=== PATIENT | female | born 1950 | race Caucasian/White ===

== ENCOUNTER → 2019-12-01 | Outpatient (CLI) | payer MEDICARE, OTHER | END | disposition home or self-care (01) | LOC: LAB SHORT 09:00 → LAB EV 09:00 | DX: R23.8 Other skin changes (principal) | CPT/HCPCS: 87529 ==

== ENCOUNTER → 2022-06-03 | Outpatient (CLI) | payer MEDICARE, OTHER | LOC: LAB SHORT 08:15 → PLD 08:15 → LAB 08:15 | DX: L60.2 Onychogryphosis (principal); B35.1 Tinea unguium | CPT/HCPCS: 88304; 88312 ==

== ENCOUNTER 2022-09-02 08:56 | Day surgery (SDC) | payer MEDICARE, OTHER ==
[~2022-09-02] VITALS: Ht 160 cm; Wt 55.8 kg
[~2022-09-02 08:56] MED LIST: ACYC200 PO; ALEN70 PO; CELE200 PO; CLIMARA1 EACH TOP; Cymbalta20 MG PO; MEDR2.5 PO; OMEP20ER PO; ROPI1 PO; TRAM50 PO
[2022-09-02 10:00] VITALS: BP 139/80
--- NOTE | 2022-09-02 10:12 | NUR ---
Ambulatory in Day Surgery History, Chart, Medications and Allergies reviewed before start of procedure. Pre-Op teaching done. Pt verbalizes understanding. Patient States Post-Procedure ride home has been arranged.
--- NOTE | 2022-09-02 10:20 | NUR ---
09/02/22 Shayla Gore HISTORY, CHART, MEDICATIONS AND ALLERGIES REVIEWED BEFORE START OF PROCEDURE. PATIENT CONFIRMS NPO STATUS AND AGREES WITH SCHEDULED PROCEDURE. 3-LEAD EKG REVIEWED WITH PHYSICIAN PRIOR TO START OF PROCEDURE. MONITOR INTACT WITH CONTINUOUS PULSE OXIMETRY,CAPNOGRAPHY, 3-LEAD EKG, INTERMITTENT BP. SUPPLEMENTAL O2 TO BE TITRATED THROUGHOUT PROCEDURE TO MAINTAIN O2 SATURATION ABOVE 90%. PATIENT DETERMINED TO BE ASA APPROPRIATE FOR PROPOFOL SEDATION PRIOR TO START OF PROCEDURE BY
[2022-09-02 10:52] VITALS: BP 132/82
--- NOTE | 2022-09-02 10:57 | NUR ---
REPORT RECIEVED. PT UP IN BED TOLERING PO FLUIDS. DR DIANA AND AT BEDSIDE. ON ROOM AIR. VSS
[2022-09-02 11:03] VITALS: BP 124/88
--- NOTE | 2022-09-02 11:17 | NUR ---
Patient up to Ambulate independently. Gait steady. Discharge instructions reviewed with patient AND FRIEND . Patient verbalizes understanding. Copy given to patient to take home. Discharged via wheelchair to private car for ride home. PT UP TO RESTROOM
== END 2022-09-02 11:20 | disposition home or self-care (01) ==
LOC: ORSCMMR 08:56 → ORD 10:00 → ORSCMMR 11:20
PROVIDERS: Internal Medicine Gastroenterology
PROC: 0DB48ZX Excision of Esophagogastric Junction, Via Natural or Artificial Opening Endoscopic, Diagnostic (ICD-10-PCS; principal; 2022-09-02 10:00)
PROC: 0DB68ZX Excision of Stomach, Via Natural or Artificial Opening Endoscopic, Diagnostic (ICD-10-PCS; principal; 2022-09-02 10:00)
PROC: 0DB58ZX Excision of Esophagus, Via Natural or Artificial Opening Endoscopic, Diagnostic (ICD-10-PCS; principal; 2022-09-02 10:00)
PROC: 0DB98ZX Excision of Duodenum, Via Natural or Artificial Opening Endoscopic, Diagnostic (ICD-10-PCS; principal; 2022-09-02 10:00)
DX: R10.13 Epigastric pain (principal); F32.A Depression, unspecified; Z80.0 Family history of malignant neoplasm of digestive organs; R04.2 Hemoptysis; K21.9 Gastro-esophageal reflux disease without esophagitis; Z79.899 Other long term (current) drug therapy
CPT/HCPCS: 88305; 88342; A9270; J2704; J7120

== ENCOUNTER → 2022-12-04 | Outpatient (CLI) | payer MEDICARE, OTHER ==
[2022-12-09 06:10] LABS: TRAMADOL >2128 (.)
== END | disposition home or self-care (01) ==
LOC: LAB SHORT 11:29 → LAB 11:29
PROVIDERS: Physician Assistant
DX: Z51.81 Encounter for therapeutic drug level monitoring (principal); Z79.899 Other long term (current) drug therapy
CPT/HCPCS: G0480

== ENCOUNTER → 2023-10-21 | Outpatient (CLI) | payer MEDICARE, OTHER ==
[2023-10-25 09:46] LABS: 6-ACETYLMORPHINE, URN, QUANT <10 ng/mL; CODEINE, URN, QUANT <20 ng/mL; HYDROCODONE, URN, QUANT <20 ng/mL; HYDROMORPHONE, URN, QUANT <20 ng/mL; MORPHINE, URN, QUANT <20 ng/mL; NORHYDROCODONE, URN, QUANT 69 ng/mL; NOROXYCODONE, URN, QUANT <20 ng/mL; NOROXYMORPHONE, URN, QUANT <20 ng/mL; OXYCODONE, URN, QUANT <20 ng/mL; OXYMORPHONE, URN, QUANT <20 ng/mL
== END ==
LOC: LAB 15:35 → LAB SHORT 15:35
PROVIDERS: Physician Assistant
DX: Z79.891 Long term (current) use of opiate analgesic (principal); Z79.899 Other long term (current) drug therapy
CPT/HCPCS: G0480

== ENCOUNTER 2024-05-19 11:39 | Inpatient (IN) | payer MEDICARE, OTHER ==
[~2024-05-19] VITALS: Ht 160 cm; Wt 58.6 kg
[2024-05-19] MEDS ORDERED: Morphine Sulfate 4 MG/1 ML Injection IV ONE ×2 (12:20→13:00)
[2024-05-19 12:25] LABS: BASOPHILS ABSOLUTE AUTO 0.04 K/mm3 (0.00-0.23); BASOPHILS PERCENT AUTO 0 % (0-2); EOSINOPHILS ABSOLUTE AUTO 0.01 K/mm3 (0.00-0.68); EOSINOPHILS PERCENT AUTO 0 % (0-6); Hematocrit 33.4 % (33.0-51.0); Hemoglobin 11.2 g/dL (11.5-16.0); IMMATURE GRAN ABSOLUTE AUTO 0.03 K/mm3 (0.00-0.10); IMMATURE GRAN PERCENT AUTO 0 % (0-1); LYMPHOCYTES ABSOLUTE AUTO 0.95 K/mm3 (0.84-5.20); LYMPHOCYTES PERCENT AUTO 9 % (21-46); MONOCYTES ABSOLUTE AUTO 1.06 K/mm3 (0.16-1.47); MONOCYTES PERCENT AUTO 10 % (4-13); Mean Corpuscular HGB 29.1 pg (26.0-34.0); Mean Corpuscular HGB Conc 33.5 g/dL (31.5-36.5); Mean Corpuscular Volume 87 fL (80-100); Mean Platelet Volume 10.3 fL (9.1-12.4); NEUTROPHILS ABSOLUTE AUTO 8.39 K/mm3 (1.96-9.15); NEUTROPHILS PERCENT AUTO 80 % (41-73); Platelet Count 198 K/mm3 (150-400); RDW Coefficient Variation 13.8 % (11.7-14.2); RDW Standard Deviation 43.7 fL (35.1-46.3); Red Blood Cell Count 3.85 M/mm3 (3.80-5.20); White Blood Cell Count 10.48 K/mm3 (4.00-11.30)
[2024-05-19 12:51] LABS: Free Thyroxine 1.54 ng/dL (0.70-1.60)
[2024-05-19 12:54] LABS: Albumin, Blood 3.6 g/dL (3.4-5.0); Bilirubin, Total 1.1 mg/dL (0.1-1.0); Bun/Creatinine Ratio 33.6 (12.0-20.0); Calcium, Blood 8.8 mg/dL (8.5-10.1); Creatinine, Blood 0.92 mg/dL (0.40-1.00); Globulin, Blood 3.7 g/dL (2.2-4.0); Potassium, Blood 3.7 mmol/L (3.5-5.5); Thyroid Stimulating Hormone 0.594 uIU/mL (0.360-4.800); Total Protein, Blood 7.3 g/dL (6.4-8.2)
[2024-05-19 14:51] LABS: Source, Urine Straight Cath
[2024-05-19 14:54] LABS: Bilirubin, Urine Neg (Neg); Blood, Urine 1+ (Neg); Color, Urine Yellow (P-Yellow); Glucose Qualitative, Urine Neg (Neg); Ketones, Urine 4+ (Neg); Leukocyte Esterase, Urine 1+ (Neg); Nitrite, Urine Neg (Neg); Protein, Urine 2+ (Neg); Specific Gravity, Urine 1.025 (1.003-1.022); Urobilinogen, Urine NORM (Normal)
[2024-05-19] MEDS ORDERED: NS 1,000 ML IV SCH ×2 (15:00→18:45)
[2024-05-19 15:06] LABS: Appearance, Urine Hazy (Clear)
[2024-05-19 15:08] LABS: Red Blood Cells, Urine 0-2 /hpf (0-2); Squamous Epithelial Cells Rare /hpf (Few)
[2024-05-19 15:09] LABS: Bacteria Mod /hpf; Mucus Light (0-Heavy)
[2024-05-19] MEDS ORDERED: HYDROmorphone HCl/Pf 1MG SYR IV ONE (15:25)
[2024-05-19] MEDS ORDERED: FLU VACC TS2024-25(6MOS UP)/PF 45 MCG/0.5 ML SYRINGE IM ONE (18:20)
[2024-05-19] MEDS ORDERED: Ondansetron 4 MG TAB PO PRN (18:20)
[2024-05-19] MEDS ORDERED: CefTRIAXone Sodium 1,000 MG in NS 100 ML IV SCH (19:00)
[2024-05-19] MEDS ORDERED: VENL75ER PO (19:55)
[2024-05-19] MEDS ORDERED: TRAZ50 PO (20:00)
[2024-05-19] MEDS ORDERED: FURO20 PO (20:01)
[2024-05-19] MEDS ORDERED: OMEP20ER PO (20:01)
[2024-05-19] MEDS ORDERED: PROP80ER PO (20:02)
--- NOTE | 2024-05-19 20:02 | NUR ---
TOOK REPORT FROM QI WARREN.
[2024-05-19] MEDS ORDERED: PREG200 PO (20:04)
[2024-05-19] MEDS ORDERED: NIFE60ER PO (20:06)
[2024-05-19 20:30] VITALS: BP 120/67
[2024-05-19] MEDS ORDERED: Morphine Sulfate 4 MG/1 ML Injection IV PRN (21:15)
--- NOTE | 2024-05-20 00:04 | NUR ---
PT FAILED BEDSIDE SWALLOW EVALUATION. HOSPITALIST NOTIFIED AND PT MADE NPO. 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 HOSPITALIST NOTIFIED AND ORDERS GIVEN TO PASS ALONG TO DAY TO [facility] FOR POSSIBLE HEAD MRI AND ST EVALUATION.
[2024-05-20] MEDS ORDERED: FentaNYL Citrate 50 MCG/ML 2 ML Injection IV PRN (00:25)
[2024-05-20] MEDS ORDERED: DiphenhydrAMINE HCl 50 MG/ML 1ML Vial IV ONE ×2 (04:15→22:55)
--- NOTE | 2024-05-20 04:23 | NUR ---
PT HAD C/O OF ITCHING AND ORDER FOR IV BENADRYL 25 MG X 1 GIVEN.
--- NOTE | 2024-05-20 05:19 | NUR ---
SHIFT SUMMARY NOC PT A/O X 3-4. HAS NEW BUE CONTRACTURES THAT HAVE IMPROVED WITH BETTER RANGE OF MOTION SINCE ADMIT TO FLOOR, WELL L EYE DROOP HAS RESOLVED AND BOTH ARE EQUAL. PT FAILED BEDSIDE SWALLOW EVALUATION AND IS NPO PENDING ST EVAL. 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 PAIN BEING MANAGED PER EMAR. PT GIVEN ONE DOSE BENADRYL FOR ITCHING. NS INFUSING @ 100 ML/HR. PUREWICK IN PLACE FOR INCONTINENCE AND IMMOBILITY. DURING ASSESSMENT PT DOES NOT REMEMBER FALLING DOWN AT HOME. PT SISTER IN ROOM STAYING WITH PT. PT SON LISETTE IN [place] IS POA AND SENDING ADVANCE DIRECTIVE/POA DOCUMENTS TO CARE MANAGEMENT. PT HAD SMALL HARD BM ON BEDPAN. PT CURRENTLY RESTING WITH BED IN LOWEST POSITION, AND CALL LIGHT WITHIN REACH.
[2024-05-20 06:00] VITALS: BP 134/69
[2024-05-20 07:43] VITALS: BP 144/76
[2024-05-20 08:19] LABS: BASOPHILS ABSOLUTE AUTO 0.04 K/mm3 (0.00-0.23); BASOPHILS PERCENT AUTO 1 % (0-2); EOSINOPHILS ABSOLUTE AUTO 0.05 K/mm3 (0.00-0.68); EOSINOPHILS PERCENT AUTO 1 % (0-6); Hematocrit 30.3 % (33.0-51.0); Hemoglobin 10.1 g/dL (11.5-16.0); IMMATURE GRAN ABSOLUTE AUTO 0.02 K/mm3 (0.00-0.10); IMMATURE GRAN PERCENT AUTO 0 % (0-1); LYMPHOCYTES ABSOLUTE AUTO 1.26 K/mm3 (0.84-5.20); LYMPHOCYTES PERCENT AUTO 16 % (21-46); MONOCYTES ABSOLUTE AUTO 0.95 K/mm3 (0.16-1.47); MONOCYTES PERCENT AUTO 12 % (4-13); Mean Corpuscular HGB Conc 33.3 g/dL (31.5-36.5); Mean Corpuscular Volume 87 fL (80-100); Mean Platelet Volume 10.1 fL (9.1-12.4); NEUTROPHILS ABSOLUTE AUTO 5.74 K/mm3 (1.96-9.15); NEUTROPHILS PERCENT AUTO 71 % (41-73); Platelet Count 173 K/mm3 (150-400); RDW Coefficient Variation 14.4 % (11.7-14.2); RDW Standard Deviation 45.9 fL (35.1-46.3); Red Blood Cell Count 3.48 M/mm3 (3.80-5.20); White Blood Cell Count 8.06 K/mm3 (4.00-11.30)
[2024-05-20 08:39] LABS: Albumin, Blood 3.3 g/dL (3.4-5.0); Albumin/Globulin Ratio 1.1 (0.8-1.8); Bilirubin, Total 0.8 mg/dL (0.1-1.0); Bun/Creatinine Ratio 23.1 (12.0-20.0); Calcium, Blood 7.9 mg/dL (8.5-10.1); Creatinine, Blood 0.65 mg/dL (0.40-1.00); Globulin, Blood 3.1 g/dL (2.2-4.0); Potassium, Blood 3.3 mmol/L (3.5-5.5); Total Protein, Blood 6.4 g/dL (6.4-8.2)
[2024-05-20] MEDS ORDERED: Enoxaparin 40 MG/0.4 ML SYR SC SCH (09:00)
[2024-05-20] MEDS ORDERED: Potassium Chl 20MEQ/Water100ML 100 ML IV SCH (10:20)
[2024-05-20 15:50] VITALS: BP 152/87
--- NOTE | 2024-05-20 17:07 | NUR ---
SHIFT SUMMARY PT AOX3/4, COOPERATIVE, ABLE TO MAKE NEEDS KNOWN. PT CURRENLTY NPO DUE TO ASPIRATION RISK. MRI SCREENING FORM COMPLETE, FAXED TO IMAGING, IMAGING WILL PERFORM FURTHER 05/21/24. PT IS BEDREST, PUREWICK ACTIVE AND PATENT. MANY COMPLAINTS OF PAIN, MEDICATING PER EMAR. USING SPONGES TO MOISTEN MUCOUS MEMBRANES OF MOUTH. BED IN LOWEST POSITION, CALL LIGHT WITHIN REACH.
[2024-05-20 19:30] VITALS: BP 138/70
[2024-05-20 22:45] VITALS: BP 148/83
[2024-05-20] MEDS ORDERED: Famotidine 10 MG/ML 2ML Vial IV ONE (22:55)
[2024-05-20] MEDS ORDERED: MethylPREDNISolone Sod Succ 125 MG Vial IV ONE (22:55)
[2024-05-20] MEDS ORDERED: DiphenhydrAMINE HCl 50 MG/ML 1ML Vial ONE (22:55)
[2024-05-20] MEDS ORDERED: MethylPREDNISolone Sod Succ 125 MG Vial ONE (22:55)
[2024-05-20] MEDS ORDERED: D5W-1/2NS 1,000 ML IV SCH (23:20)
--- NOTE | 2024-05-21 00:14 | NUR ---
PT NOTED INCREASED BREATH SOUNDS FROM DOORWAY. WHEN ASSESSED SIGNIFICANT TONGUE SWELLING NOTED BY RT AND RN. SPO2 >92% ON RA, BUT BREATHING NOTED TO BE LABORED. BP STABLE, BUT PT TACHYCARDIC AND TACHYPNEIC. ASSOCIATE PROJECT MANAGER NOTIFIED THAT BOX TOE STITCHER PROBABLY NEEDED AND TO TAKE SECOND LOOK AT PT. BOX TOE STITCHER CALLED @ 0090. BOX TOE STITCHER AND HOSPTIALISTS ASSESSED PT AND TOLD PT HAS BEEN NPO AND HAS ONLY RECEIVED IV MORPHIN, FENTANYL AND 2 DOSES IV ABX ROCEPHIN SINCE COMING TO FLOOR YESTERDAY. PT GIVEN IV BENADRYL 50 MG, IV SOLU MED 60 MG, IV PEPCID 20 MG, WELL NASAL TRUMPET PLACEMENT BY RT. TONGUE SWELLING DECREASED AFTER RX GIVEN. ADDITIONAL ORDERS FOR IV BENADRYL Q8 X 2 DOSES, IV PEPCID 20 MG BID X 4 DOSES, AND IV SOLU MED 60 MG Q8 X 3 DOSES, BUT ONLY I MORE DOSE IF PT CONDITION IMPROVES. PT HAS BEEN NPO SINCE ADMIT YESTERDAY AND BLOOD SUGAR SPOT CHECKED AND FOUND TO BE TREDING DOWN FROM 84 IN AM TO 75, Q6H CHECKS ORDERED WELL D5 1/2 NS @ 75 X 1L.
[2024-05-21] MEDS ORDERED: DiphenhydrAMINE HCl 50 MG/ML 1ML Vial IV ONE (01:55)
[2024-05-21] MEDS ORDERED: DiphenhydrAMINE HCl 50 MG/ML 1ML Vial IV PRN (02:45)
[2024-05-21] MEDS ORDERED: HYDROmorphone HCl/Pf 1MG SYR IV ONE (04:55)
[2024-05-21 05:00] VITALS: BP 137/72
--- NOTE | 2024-05-21 05:37 | NUR ---
SHIFT SUMMARY NOC PT A/O X 4. PLEASANT AND COOPERATIVE WITH CARE. DURING ROUNDING PT BREATH SOUNDS COULD BE HEARD LOUD AND LABORED FROM DOORWAY. PT ASSESSED BY RN AND RT AND FOUND TO HAVE SIGNIFICANT SWELLING IN TONGUE AND FACE, BUT AIRWAY PATENT WITH SPO2 >92% ON RA, VSS AND HR ELEVATED AND PT TACHYPNEIC. CHARGE NURSE NOTIFIED AND SEAPORT PLANNING MANAGER INTIATED. PT GIVEN IV BENADRYL, PEPCID, AND SOLU MED. ADDITINAL DOSES OF EACH ORDERED SCHEDULED. IV ABX ROCEPHIN SUSPECTED PROBABLE CAUSE OF ANAPHYLAXIS AND DISCONTINUED. 28 CHADIAN NASAL TRUMPET PLACED BY RT TO KEEP AIRWAY PATENT DUE TO TONGUE SWELLING. PT SPO2 REMAINED >94%. PT ALSO HAS BEEN NPO SINCE ADMIT TO FLOOR AND SPOT CHECK OF BLOOD GLUCOSE 75, HOSPITALIST NOTIFIED AFTER SEAPORT PLANNING MANAGER CONCLUDED AND PT ON Q6H CBG CHECKS AND NS CHANGED TO D5 1/2 NS @ 75 ML/HR X 1L TO KEEP BLOOD GLUCOSE WNL UNTIL PT CAN BE SEEN BY ST FOR SWALLOW EVAL. PT HAS MORE ROM AND STRENGTH IN BUE, BUT BLE REMAIN VERY WEAK AND CONTRACTED TOGETHER. PT HAS MRI SCHEDULED FOR TODAY TO DETERMINE PLAN GOING FORWARD. PT HAS PUREWICK IN PLACE DUE TO WEAKNESS AND IMMOBILITY/PAIN. PT CURRENTLY RESTING WITH BED IN LOWEST POSITION, AND CALL LIGHT WITHIN REACH.
--- NOTE | 2024-05-21 05:43 | NUR ---
PT HAVING PAIN 9 ON FLACC SCALE. PT HAD ANAPHYLACTIC REACTION TO UNKNOWN SOURCE EARLIER IN SHIFT. PT HAD BEEN RECEIVING IV MORPHINE, FENTANYL FOR PAIN, AND IV ROCEPHIN WHICH WAS DC. HOSPITALIST NOTIFIED OF RN CONCERN ABOUT NOT KNOWING FOR SURE WHAT SOURCE OF REACTION WAS FROM. ONE TIME DOSE IV DILAUDID 0.5 MG WITH NO REACTION.
[2024-05-21] MEDS ORDERED: DiphenhydrAMINE HCl 50 MG/ML 1ML Vial IV SCH (07:00)
[2024-05-21] MEDS ORDERED: MethylPREDNISolone Sod Succ 125 MG Vial IV SCH (07:00)
--- NOTE | 2024-05-21 07:26 | NUR ---
BEFORE SHIFT CHANGE HOSPITALIST CAME TO CHECK ON PT, AND TOLD AND ASSESSED THAT PT TONGUE SWELLING HAS RESOLVED. HOSPITALIST STILL WANTS NPO STATUS BUT ALLOWING ICE CHIPS. PT ABLE CHEW AND SWALLOW ICE CHIPS W/O ISSUE.
[2024-05-21 07:41] VITALS: BP 134/81
[2024-05-21] MEDS ORDERED: Famotidine 10 MG/ML 2ML Vial IV SCH (09:00)
[2024-05-21 11:48] LABS: BASOPHILS ABSOLUTE AUTO 0.01 K/mm3 (0.00-0.23); BASOPHILS PERCENT AUTO 0 % (0-2); EOSINOPHILS PERCENT AUTO 0 % (0-6); Hematocrit 34.5 % (33.0-51.0); Hemoglobin 11.4 g/dL (11.5-16.0); IMMATURE GRAN ABSOLUTE AUTO 0.04 K/mm3 (0.00-0.10); IMMATURE GRAN PERCENT AUTO 0 % (0-1); LYMPHOCYTES ABSOLUTE AUTO 0.47 K/mm3 (0.84-5.20); LYMPHOCYTES PERCENT AUTO 5 % (21-46); MONOCYTES ABSOLUTE AUTO 0.08 K/mm3 (0.16-1.47); MONOCYTES PERCENT AUTO 1 % (4-13); Mean Corpuscular HGB 29.1 pg (26.0-34.0); Mean Corpuscular Volume 88 fL (80-100); NEUTROPHILS ABSOLUTE AUTO 8.76 K/mm3 (1.96-9.15); NEUTROPHILS PERCENT AUTO 94 % (41-73); Platelet Count 203 K/mm3 (150-400); RDW Coefficient Variation 14.2 % (11.7-14.2); RDW Standard Deviation 45.1 fL (35.1-46.3); Red Blood Cell Count 3.92 M/mm3 (3.80-5.20); White Blood Cell Count 9.36 K/mm3 (4.00-11.30)
[2024-05-21] MEDS ORDERED: Scopolamine Hydrobromide Patch TOP PRN (12:00)
[2024-05-21] MEDS ORDERED: LORazepam 1 MG Tab PO PRN (12:00)
[2024-05-21] MEDS ORDERED: Morphine Sulfate 20 MG/1ML 1 ML Oral Syringe SL PRN (12:00)
[2024-05-21] MEDS ORDERED: Atropine Sulfate 1% Opth Soln 2ML BTL SL PRN (12:00)
[2024-05-21 12:06] LABS: Albumin, Blood 3.2 g/dL (3.4-5.0); Albumin/Globulin Ratio 0.8 (0.8-1.8); Bilirubin, Total 0.7 mg/dL (0.1-1.0); Bun/Creatinine Ratio 11.5 (12.0-20.0); Calcium, Blood 7.8 mg/dL (8.5-10.1); Creatinine, Blood 0.52 mg/dL (0.40-1.00); Globulin, Blood 3.9 g/dL (2.2-4.0); Total Protein, Blood 7.1 g/dL (6.4-8.2)
[2024-05-21] MEDS ORDERED: Cyclobenzaprine HCl 10 MG Tab PO SCH (14:00)
[2024-05-21] MEDS ORDERED: TraZODone HCl 50 MG Tab PO PRN (14:35)
--- NOTE | 2024-05-21 15:33 | NUR ---
MET WITH PATIENT AND FAMILY. HER SISTER KANDACE, HER MOTHER VALENTIN AND HER FRIEND TINO WERE PRESENT. THEY REPORTED THAT SHE WAS FEELING AGITATED WITH THE FENTANYL. THEY ASKED ABOUT HOSPICE AND WHAT THOSE SERVICES WOULD PROVIDE. I CLARIFIED IF THEY HAD DECIDED ON HOSPICE. THEY SAID THAT IS THE DIRECTION THEY HAVE DECIDED TO GO. I DISCUSSED THIS WITH DR. DOTSON AND PLACED ORDERS FOR COMFORT CARE.
--- NOTE | 2024-05-21 18:27 | NUR ---
SHIFT SUMMARY PT TRANSITIONED TO COMFORT CARE THIS SHIFT. PT DROWSY THIS AM, BUT BECAME MORE ALERT AND WAS ORIENTED X2 W/ CONFUSION AT TIMES. PAIN MEDICATED PER EMAR AND WAS REPOSITIONED Q2H. FAMILY AT BESIDE T/O SHIFT. CALL LIGHT WITHIN REACH. PLAN FOR D/C ON HOSPICE PENDING CARE COORDINATION.
[2024-05-21] MEDS ORDERED: rOPINIRole HCl 1 MG Tab PO SCH (21:00)
[2024-05-21] MEDS ORDERED: Pregabalin 50 MG Capsule PO SCH (21:00)
--- NOTE | 2024-05-22 05:19 | NUR ---
SHIFT SUMMARY NOC PT A/O TO SELF, FAMILY, PLACE. ON COMFORT CARE MEASURES. PT HOME MEDS NOT GIVEN DUE TO PT NOT BEING ALERT ENOUGH TO TAKE THEM. PT RECEIVED ROXANOL/ATIVAN FOR PAIN/AGITATION. DOSE OF BENADRYL GIVEN FOR C/O OF ITCHING AND SWELLING PER PT, BUT NO SWELLING NOTED UPON ASSESSMENT. PUREWICK IN PLACE FOR COMFORT. ORAL CARE PROVIDED PER ORDERS/PRN. PT CURRENTLY RESTING WITH BED IN LOWEST POSITION, AND CALL LIGHT WITHIN REACH.
--- NOTE | 2024-05-22 17:01 | NUR ---
Patient appears to be transitioning and her sister in law Radha was requesting pastoral care for an end of life prayer. I conducted a brief life review of patient and then provided prayer for the patient and for those impacted by her passing. Radha voiced her appreciation for the timing and the prayer. I will continue to remain available to patient and family.
--- NOTE | 2024-05-22 17:49 | NUR ---
PT HAS BEEN RESTING THROUGHT THE DAY. PRN MEDICATIONS GIVEN AROUND THE CLOCK FOR COMFORT PER MD ORDERS. SEE EMAR FOR DETAILS AND FREQUENCY.
--- NOTE | 2024-05-22 22:23 | NUR ---
AT 2144 PATIENT , HER FAMILY WAS WITH HER, AND LET ME KNOW. I HAD MY CHARGE NURSE DOUBLE CHECK WITH ME.
== END 2024-05-23 03:54 | DRG 690 ==
LOC: ER 11:39 → MEDS 19:34
PROVIDERS: Student in an Organized Health Care Education/Training Program; ADMIT Internal Medicine
DX: N39.0 Urinary tract infection, site not specified (principal); C79.51 Secondary malignant neoplasm of bone; G93.40 Encephalopathy, unspecified; R64 Cachexia; Z66 Do not resuscitate; F32.A Depression, unspecified; G25.81 Restless legs syndrome; K21.9 Gastro-esophageal reflux disease without esophagitis; M81.0 Age-related osteoporosis without current pathological fracture; F41.1 Generalized anxiety disorder; N39.41 Urge incontinence; N18.2 Chronic kidney disease, stage 2 (mild); G47.00 Insomnia, unspecified; Z51.5 Encounter for palliative care; C50.919 Malignant neoplasm of unspecified site of unspecified female breast; G89.3 Neoplasm related pain (acute) (chronic); G25.0 Essential tremor; B95.5 Unspecified streptococcus as the cause of diseases classified elsewhere; I12.9 Hypertensive chronic kidney disease with stage 1 through stage 4 chronic kidney disease, or unspecified chronic kidney disease; Z98.51 Tubal ligation status; Z80.0 Family history of malignant neoplasm of digestive organs; Z80.1 Family history of malignant neoplasm of trachea, bronchus and lung; Z80.8 Family history of malignant neoplasm of other organs or systems; Z90.49 Acquired absence of other specified parts of digestive tract; Z98.890 Other specified postprocedural states; Z98.1 Arthrodesis status; Z88.1 Allergy status to other antibiotic agents; Z79.899 Other long term (current) drug therapy; Z98.49 Cataract extraction status, unspecified eye; Z98.86 Personal history of breast implant removal; Z79.2 Long term (current) use of antibiotics; Z82.62 Family history of osteoporosis; Z68.23 Body mass index [BMI] 23.0-23.9, adult
CPT/HCPCS: 36415; 70450; 70553; 71046; 72125; 73560-LT; 73560-RT; 80053; 81001; 82140; 82550; 82947; 83605; 83735; 84439; 84443; 85025; 87077; 87086; 93005; 93010; 94762; 96361; 96374; 96375; 96376; 99285-25; A9270; A9579; J0696; J1171; J1200; J1650; J2270; J2919; J3010; J3480; J7030; J7042